=== PATIENT | female | born 1970 | race Caucasian/White ===

== ENCOUNTER 2021-11-22 07:16 | Inpatient (IN) ==
[2021-11-22] MEDS ORDERED: cefOXitin 2,000 MG in 0.9 % Sodium Chloride 20 ML IVP ONE (08:08)
[2021-11-22] MEDS ORDERED: *HR* HYDROmorphone 2 MG TABLET PO PRN (08:10)
[2021-11-22] MEDS ORDERED: *HR* HYDROmorphone (PF) 1 MG/ML SYRINGE IVP PRN (08:10)
[2021-11-22] MEDS ORDERED: Acetaminophen IV 1,000 MG/100 ML BAG IVPB ONE (08:10)
[2021-11-22] MEDS ORDERED: Ketorolac 30 MG/ML VIAL IVP PRN (08:10)
[2021-11-22] MEDS ORDERED: *HR* Labetalol 20 MG/4 ML SYRINGE IVP PRN (08:10)
[2021-11-22] MEDS ORDERED: Scopolamine Patch 1.5 MG PATCH.TD72 TD ONE (08:10)
[2021-11-22] MEDS ORDERED: *HR* OxyCODONE Immed Rel 5 MG TABLET PO PRN (08:10)
[2021-11-22] MEDS ORDERED: Pregabalin 75 MG CAPSULE PO ONE (08:10)
[2021-11-22] MEDS ORDERED: Famotidine 20 MG/2 ML VIAL IVP ONE (08:10)
[2021-11-22] MEDS: Ringers Solution, Lactated 1,000 ML IVC SCH ×2 (08:26→17:57)
[2021-11-22] MEDS ORDERED: *HR* FentaNYL (PF) 100 MCG/2 ML VIAL ONE (08:53)
[2021-11-22] MEDS ORDERED: *HR* Midazolam HCl 2 MG/2 ML VIAL ONE (08:53)
[2021-11-22] MEDS ORDERED: Ondansetron 4 MG/2 ML VIAL ONE (08:54)
[2021-11-22] MEDS ORDERED: Lidocaine -MPF 2% 2 ML VIAL ONE (08:54)
[2021-11-22] MEDS ORDERED: *HR* Rocuronium Bromide 50 MG/5 ML VIAL ONE (08:54)
[2021-11-22] MEDS ORDERED: *HR* Propofol 200 MG/20 ML VIAL IVP ONE (08:54)
[2021-11-22] MEDS ORDERED: *HR* Succinylcholine 200 MG/10 ML VIAL IVP ONE (08:54)
[2021-11-22] MEDS ORDERED: Lidocaine HCL 4 ML Topical Solution (Laryng-O-Jet Kit Sterile Pak) TP ONE (09:01)
[2021-11-22] MEDS ORDERED: Ketamine HCL *QUVA* 50mg (1mL) SYRINGE ONE (09:41)
[2021-11-22] MEDS ORDERED: EPHEDrine 50 MG/ML VIAL ONE (09:50)
[2021-11-22] MEDS ORDERED: Ketorolac 30 MG/ML VIAL ONE (10:21)
[2021-11-22] MEDS ORDERED: Naloxone 0.4 MG/ML INJ IVP PRN (10:32)
[2021-11-22] MEDS: *HR* HYDROcodone/Acet 5/325 mg TABLET PO PRN ×2 (13:32→21:18)
[2021-11-22] MEDS: Ketorolac 30 MG/ML VIAL IVP PRN (16:36)
[2021-11-22] MEDS: cefOXitin 2,000 MG in 0.9 % Sodium Chloride 20 ML IVP SCH (16:37)
[2021-11-23] MEDS: cefOXitin 2,000 MG in 0.9 % Sodium Chloride 20 ML IVP SCH ×2 (00:07→08:57)
[2021-11-23 00:21] VITALS: O2SAT 92
[2021-11-23] MEDS: Ketorolac 30 MG/ML VIAL IVP PRN (04:05)
[2021-11-23 04:23] VITALS: PULSE 77
[2021-11-23 04:24] VITALS: BP 108/68; TEMP 98.3
[2021-11-23 05:03] LABS: Basophils % 0.2 %; Hematocrit 37.6 % (35.3-44.9); Hemoglobin 12.5 g/dL (11.5-15.4); Immature Granulocytes % 0.4 % (0-4); Lymphocytes # 1.9 K/mcL (0.6-4.6); Lymphocytes % 15.6 %; Mean Corpuscular HGB Conc 33.2 g/dL (31.6-35.5); Mean Corpuscular Hemoglobin 32.8 pg (28.0-33.3); Mean Corpuscular Volume 98.7 fL (83.0-100.0); Mean Platelet Volume 11.2 fL (9.4-12.4); Monocytes # 0.7 K/mcL (0.0-1.3); Monocytes % 5.8 %; Neutrophils # 9.4 K/mcL (1.6-8.9); Platelet Count 205 K/mcL (140-400); Red Blood Count 3.81 M/mcL (3.82-4.97); Red Cell Distribution Width 12.7 % (11.5-14.5); White Blood Count 12.1 K/mcL (4.3-11.1)
[2021-11-23 05:23] LABS: BUN/Creatinine Ratio 12 (6-26); Blood Urea Nitrogen 10 mg/dL (6-20); eGFR For African Americans > 60 (> 60); eGFR For Non-African Americans > 60 (> 60)
[2021-11-23] MEDS: *HR* HYDROcodone/Acet 5/325 mg TABLET PO PRN (08:59)
== END 2021-11-23 11:05 | disposition home or self-care (01) | DRG 743 ==
LOC: SAMDAY 07:16 → 1NENUOBS 11:17
PROVIDERS: ADMIT Obstetrics & Gynecology; ATTEND Obstetrics & Gynecology